=== PATIENT | male | born 1985 | race American Indian/Alaskan Native ===

== ENCOUNTER 2019-08-09 22:33 | Emergency (ER) | payer MEDICAID ==
[2019-08-09] MEDS ORDERED: SODIUM CHLORIDE 0.9% 1000 ML IV SOLN IV ONE (22:51)
[2019-08-09] MEDS ORDERED: DICYCLOMINE 20 MG/2 ML INJ IM ONE (22:53)
[2019-08-09] MEDS ORDERED: ONDANSETRON 4 MG/2 ML INJ IV ONE (22:53)
[2019-08-09] MEDS ORDERED: FAMOTIDINE 20 MG/2 ML INJ IV ONE (22:53)
[2019-08-09] MEDS ORDERED: MORPHINE 4 MG/1 ML INJ IV ONE (22:53)
[2019-08-09] MEDS ORDERED: CEFEPIME/NS 2 GM/100 ML 2 GM/100 ML BAG IV ONE (23:00)
[2019-08-09] MEDS ORDERED: metroNIDAZOLE/NS 500 MG/100 ML 500 MG/100 ML BAG IV SCH (23:00)
--- NOTE | 2019-08-09 23:28 | XRay Report ---
CHEST 1 VIEW 08/09/2019 10:18 PM INDICATION / CLINICAL INFORMATION: cough. COMPARISON: None available. FINDINGS: SUPPORT DEVICES: None. HEART / MEDIASTINUM: No significant abnormality. LUNGS / PLEURA: Slight elevation of the left hemidiaphragm. No acute airspace disease. No pneumothora x. ADDITIONAL FINDINGS: No significant additional findings. IMPRESSION: 1. No acute findings. Signer Name: Rebel Perez MD Signed: 08/09/2019 11:24 PM Workstation Name: [id number]
[2019-08-09 23:43] LABS: Basophils % (Auto) 0.7 % (0.0-1.8); Eosinophils # (Auto) 0.1 K/mm3 (0.0-0.4); Eosinophils % (Auto) 1.2 % (0.0-4.3); Hematocrit 33.3 % (35.5-45.6); Hemoglobin 11.2 gm/dl (11.8-15.2); Lymphocytes # (Auto) 2.1 K/mm3 (1.2-5.4); Mean Corpuscular HGB Conc 34 % (32-34); Mean Corpuscular Volume 95 fl (84-94); Monocytes # (Auto) 0.4 K/mm3 (0.0-0.8); Monocytes % (Auto) 6.1 % (0.0-7.3); Platelet Count 224 K/mm3 (140-440); Red Blood Count 3.49 M/mm3 (3.65-5.03); Red Cell Distribution Width 13.2 % (13.2-15.2)
[2019-08-10 00:07] LABS: Albumin 4.3 g/dL (3.9-5); Calcium 9.6 mg/dL (8.4-10.2)
[2019-08-10] MEDS ORDERED: MORPHINE 4 MG/1 ML INJ IV ONE (00:30)
--- NOTE | 2019-08-10 00:38 | Cat Scan Report ---
CT ABDOMEN AND PELVIS WITHOUT CONTRAST INDICATION / CLINICAL INFORMATION: Pt complains of severe abdominal pain with diarrhea x 3 days. TECHNIQUE: Axial CT images were obtained through the abdomen and pelvis without IV contrast. All CT scans at [facility] location are performed using CT dose reduction for ALARA by means of automated exposure control. COMPARISON: None available. FINDINGS: LOWER CHEST: No significant abnormality. LIVER: No significant abnormality. GALLBLADDER: No significant abnormality. BILE DUCTS: No significant abnormality. PANCREAS: No significant abnormality. SPLEEN: No significant abnormality. ADRENALS: No significant abnormality. RIGHT KIDNEY and URETER: Right nephrostomy drainage catheter in expected position. Multiple tiny nono bstructing stones. LEFT KIDNEY and URETER: Left nephrostomy drainage catheter in expected position. STOMACH and SMALL BOWEL: Fluid-filled, nondilated loops of mid small bowel. COLON: Mildly dilated, fluid-filled loops of colon. Anastomotic suture line in the right colon. APPENDIX: Not visualized. PERITONEUM: No free fluid. No free air. No fluid collection. LYMPH NODES: No significant adenopathy. AORTA and ARTERIES: No significant abnormality. IVC and VEINS: No significant abnormality. URINARY BLADDER: No significant abnormality. REPRODUCTIVE ORGANS: No significant abnormality. ADDITIONAL FINDINGS: Mild perirectal and a sacral soft tissue thickening which appears chronic. Moder ate scrotal edema. SKELETAL SYSTEM: Subjective osteopenia with moderate bilateral hip degenerative arthrosis greater jillian n expected for age. IMPRESSION: 1. No inflammatory process or bowel obstruction. 2. Fluid-filled loops of small bowel and colon may represent enteritis. 3. Moderate scrotal edema. Signer Name: Rebel Perez MD Signed: 08/10/2019 12:33 AM Workstation Name: [id number]
--- NOTE | 2019-08-10 00:58 | Emergency Department Report ---
ED Abdominal Pain HPI - General Chief Complaint: Nausea/Vomiting/Diarrhea Stated Complaint: DIARRHEA Time Seen by Provider: 08/09/19 22:46 Source: patient, EMS Mode of arrival: Stretcher Limitations: No Limitations - History of Present Illness Initial Comments: Patient is a 34-year-old F [place] male with a past medical history of chronic pain as well as in the pruritus requiring bilateral nephrostomy tubes as well as a history of C. difficile who is complaining of 2 days of diarrhea. Patient states the diarrhea is constant. Paramedics states he found the patient in the shower having active watery stools. Patient states over the last 2 days he has vomited 3 times but does not complain of any current nausea. He denies fevers or chills but states he has a mild nonproductive cough. Patient states that he has crampy diffuse abdominal pain is a 10 out of 10 in severity. Severity scale (0 -10): 10 Quality: cramping Consistency: constant Improves With: nothing Worsens With: nothing - Related Data Previous Rx's Medication Instructions Recorded Last Taken Type Dicyclomine [Bentyl] 20 mg PO QID #20 tablet 08/10/19 Unknown Rx Diphenoxylate/Atropine [Lomotil] 1 tab PO Q4H PRN #10 tablet 08/10/19 Unknown Rx Ondansetron [Zofran Odt] 4 mg PO Q8HR #10 tab.rapdis 08/10/19 Unknown Rx Vancomycin HCl 125 mg PO Q6HR 14 Days capsule 08/10/19 Unknown Rx Allergies Allergy/AdvReac Type Severity Reaction Status Date / Time NSAIDS (Non-Steroidal Allergy Anaphylaxis Verified 08/09/19 23:24 Anti-Inflamma ED Review of Systems ROS: Stated complaint: DIARRHEA Other details as noted in HPI Comment: All other systems reviewed and negative ED Past Medical Hx - Social History Smoking Status: Current Every Day Smoker Substance Use Type: None - Medications Home Medications: Home Medications Medication Instructions Recorded Confirmed Last Taken Type Dicyclomine [Bentyl] 20 mg PO QID #20 tablet 08/10/19 Unknown Rx Diphenoxylate/Atropine [Lomotil] 1 tab PO Q4H PRN #10 tablet 08/10/19 Unknown Rx Ondansetron [Zofran Odt] 4 mg PO Q8HR #10 tab.rapdis 08/10/19 Unknown Rx Vancomycin HCl 125 mg PO Q6HR 14 Days capsule 08/10/19 Unknown Rx ED Physical Exam - General Limitations: No Limitations General appearance: alert, in distress (secondary to pIN) - Head Head exam: Present: atraumatic, normocephalic - Eye Eye exam: Present: normal appearance, PERRL, EOMI - ENT ENT exam: Present: normal orophraynx, mucous membranes moist - Neck Neck exam: Present: normal inspection - Respiratory Respiratory exam: Present: normal lung sounds bilaterally. Absent: respiratory distress, wheezes, rales, rhonchi - Cardiovascular Cardiovascular Exam: Present: regular rate, normal rhythm, normal heart sounds. Absent: systolic murmur, diastolic murmur, rubs, gallop - GI/Abdominal GI/Abdominal exam: Present: soft, distended, tenderness, hyperactive bowel jose nds, other (Bilateral nephrostomy tubes are in place). Absent: guarding, rebound, rigid - Rectal Rectal exam: Present: deferred - Extremities Exam Extremities exam: Present: normal inspection - Back Exam Back exam: Present: normal inspection - Neurological Exam Neurological exam: Present: alert, oriented X3 - Psychiatric Psychiatric exam: Present: normal affect, normal mood - Skin Skin exam: Present: warm, dry, intact, normal color. Absent: rash ED Course Vital Signs 08/09/19 08/09/19 08/09/19 22:53 23:00 23:03 Temperature 98.1 F Pulse Rate 76 Respiratory 18 Rate Blood Pressure 111/69 119/69 O2 Sat by Pulse 94 98 98 Oximetry 08/09/19 08/09/19 08/09/19 23:15 23:30 23:45 Temperature Pulse Rate Respiratory Rate Blood Pressure 113/73 113/73 111/79 O2 Sat by Pulse 97 96 96 Oximetry 08/10/19 00:00 Temperature Pulse Rate Respiratory Rate Blood Pressure 111/81 O2 Sat by Pulse 96 Oximetry ED Medical Decision Making - Lab Data Result diagrams: 08/09/19 23:14 08/09/19 23:14 Lab Results 08/09/19 08/09/19 08/09/19 Range/Units 23:14 23:14 23:14 WBC 7.2 (4.5-11.0) K/mm3 RBC 3.49 L (3.65-5.03) M/mm3 Hgb 11.2 L (11.8-15.2) gm/dl Hct 33.3 L (35.5-45.6) % MCV 95 H (84-94) fl MCH 32 (28-32) pg MCHC 34 (32-34) % RDW 13.2 (13.2-15.2) % Plt Count 224 (140-440) K/mm3 Lymph % (Auto) 29.0 (13.4-35.0) % [place] % (Auto) 6.1 (0.0-7.3) % Eos % (Auto) 1.2 (0.0-4.3) % Baso % (Auto) 0.7 (0.0-1.8) % Lymph # 2.1 (1.2-5.4) K/mm3 [place] # 0.4 (0.0-0.8) K/mm3 Eos # 0.1 (0.0-0.4) K/mm3 Baso # 0.0 (0.0-0.1) K/mm3 Seg Neutrophils % 63.0 (40.0-70.0) % Seg Neutrophils # 4.6 (1.8-7.7) K/mm3 Sodium 141 (137-145) mmol/L Potassium 3.7 (3.6-5.0) mmol/L Chloride 103.6 (98-107) mmol/L Carbon Dioxide 23 (22-30) mmol/L Anion Gap 18 mmol/L BUN 24 H (9-20) mg/dL Creatinine 1.8 H (0.8-1.5) mg/dL Estimated GFR 52 ml/min BUN/Creatinine Ratio 13 % Glucose 94 (75-100) mg/dL Lactic Acid 0.90 (0.7-2.0) mmol/L Calcium 9.6 (8.4-10.2) mg/dL Total Bilirubin 0.30 (0.1-1.2) mg/dL AST 17 (5-40) units/L ALT 16 (7-56) units/L Alkaline Phosphatase 164 H (35-129) units/L Total Protein 7.3 (6.3-8.2) g/dL Albumin 4.3 (3.9-5) g/dL Albumin/Globulin Ratio 1.4 % - Radiology Data [facility] [address] [place] [address] Cat Scan Report Signed Patient: JAVIER ARELLANO MR#: [id number] : 1985 Acct:[id number] Age/Sex: 34 / M ADM Date: 08/09/19 Loc: ED Attending Dr: Ordering Physician: ALFIE PRIEST MD Date of Service: 08/09/19 Procedure(s): CT abdomen pelvis wo con Accession Number(s): [id number] cc: ALFIE PRIEST MD CT ABDOMEN AND PELVIS WITHOUT CONTRAST INDICATION / CLINICAL INFORMATION: Pt complains of severe abdominal pain with diarrhea x 3 days. TECHNIQUE: Axial CT images were obtained through the abdomen and pelvis without IV contrast. All CT scans at this location are performed using CT dose reduction for ALARA by means of automated exposure control. COMPARISON: None available. FINDINGS: LOWER CHEST: No significant abnormality. LIVER: No significant abnormality. GALLBLADDER: No significant abnormality. BILE DUCTS: No significant abnormality. PANCREAS: No significant abnormality. SPLEEN: No significant abnormality. ADRENALS: No significant abnormality. RIGHT KIDNEY and URETER: Right nephrostomy drainage catheter in expected position. Multiple tiny nonobstructing stones. LEFT KIDNEY and URETER: Left nephrostomy drainage catheter in expected position. STOMACH and SMALL BOWEL: Fluid-filled, nondilated loops of mid small bowel. COLON: Mildly dilated, fluid-filled loops of colon. Anastomotic suture line in the right colon. APPENDIX: Not visualized. PERITONEUM: No free fluid. No free air. No fluid collection. LYMPH NODES: No significant adenopathy. AORTA and ARTERIES: No significant abnormality. IVC and VEINS: No significant abnormality. URINARY BLADDER: No significant abnormality. REPRODUCTIVE ORGANS: No significant abnormality. ADDITIONAL FINDINGS: Mild perirectal and a sacral soft tissue thickening which appears chronic. Moderate scrotal edema. SKELETAL SYSTEM: Subjective osteopenia with moderate bilateral hip degenerative arthrosis greater than expected for age. IMPRESSION: 1. No inflammatory process or bowel obstruction. 2. Fluid-filled loops of small bowel and colon may represent enteritis. 3. Moderate scrotal edema. Signer Name: Rebel Perez MD Signed: 08/10/2019 12:33 AM Workstation Name: [email or web address] - Medical Decision Making Patient is a 34-year-old F [place] male who is presenting with diarrhea. CT shows probable enteritis type pattern but there is no bowel thickening consistent with colitis. Patient could possibly have C. difficile however his white count was within normal limits and the patient vital signs are stable and there is no CT changes consistent with serious disease. Patient appeared to be in quite a bit of pain on arrival however after morphine was infused approximately 30 seconds later patient states he was having symptom relief. Patient does have chronic pain and could be having some malingering as well. Patient was hydrated and will be discharged home with oral vancomycin as well as Bentyl Zofran. Patient has a GI doctor whom he can follow-up with. Patient return if symptoms worsen. Critical care attestation.: If time is entered above; I have spent that time in minutes in the direct care of this critically ill patient, excluding procedure time. ED Disposition Clinical Impression: Enteritis, C. 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
[2019-08-10 01:48] LABS: Bilirubin,Urine NEG (Negative); Blood,Urine NEG (Negative); Color,Urine Yellow (Yellow); Urobilinogen,Urine < 2.0 mg/dL (<2.0)
[2019-08-10 02:06] LABS: Protein,Urine >500 mg/dL (Negative)
[2019-08-10 03:12] VITALS: BP 128/44
== END 2019-08-10 03:28 | disposition home or self-care (01) ==
LOC: ED 22:33
DX: A04.72 Enterocolitis due to Clostridium difficile, not specified as recurrent (principal); R19.7 Diarrhea, unspecified; R05 Cough; F17.200 Nicotine dependence, unspecified, uncomplicated; Z88.6 Allergy status to analgesic agent
CPT/HCPCS: 36415; 71045; 74176; 80053; 81001; 82140; 85025; 87040; 96365; 96367; 96372; 96375; 96376; 99285; J0500; J0692; J2270; J2405; J7030

== ENCOUNTER 2019-08-15 06:27 | Emergency (ER) | payer MEDICAID ==
[2019-08-15] MEDS ORDERED: SODIUM CHLORIDE 0.9% 1000 ML 1,000 ML IV ONE (07:19)
[2019-08-15] MEDS ORDERED: ONDANSETRON 4 MG/2 ML INJ IV ONE (07:19)
[2019-08-15] MEDS ORDERED: MORPHINE 4 MG/1 ML INJ IV ONE (07:20)
--- NOTE | 2019-08-15 07:23 | Emergency Department Report ---
ED General Adult HPI - General Chief complaint: Nausea/Vomiting/Diarrhea Stated complaint: ABDOMINAL PAIN/DIARRHEA Time Seen by Provider: 08/15/19 07:18 Source: patient, EMS Mode of arrival: Stretcher Limitations: No Limitations - History of Present Illness Initial comments: This is a 34-year-old male with past medical history of chronic pain and prurit us requiring bilateral nephrostomy tubes C. difficile colitis who presents with diarrhea and 1 week of abdominal pain. He has generalized malaise and diffuse abdominal pain. He was seen by my colleague [address] abdomen pelvis: Show chronic or acute pruritus. He was discharged home with oral vancomycin as well as Bentyl and Zofran. He was also referred to GI doctor. -: Gradual, days(s) Consistency: constant Improves with: none Worsens with: none Associated Symptoms: denies other symptoms - Related Data Previous Rx's Medication Instructions Recorded Last Taken Type Dicyclomine [Bentyl] 20 mg PO QID #20 tablet 08/10/19 Unknown Rx Diphenoxylate/Atropine [Lomotil] 1 tab PO Q4H PRN #10 tablet 08/10/19 Unknown Rx Ondansetron [Zofran Odt] 4 mg PO Q8HR #10 tab.rapdis 08/10/19 Unknown Rx Vancomycin HCl 125 mg PO Q6HR 14 Days capsule 08/10/19 Unknown Rx Allergies Allergy/AdvReac Type Severity Reaction Status Date / Time NSAIDS (Non-Steroidal Allergy Anaphylaxis Verified 08/09/19 23:24 Anti-Inflamma ED Review of Systems ROS: Stated complaint: ABDOMINAL PAIN/DIARRHEA Other details as noted in HPI Comment: All other systems reviewed and negative Constitutional: malaise Respiratory: denies: cough Cardiovascular: denies: chest pain Gastrointestinal: abdominal pain, diarrhea ED Past Medical Hx - Past Medical History Previous Medical History?: Yes Additional medical history: chronic diarrhea - Social History Smoking Status: Current Every Day Smoker Substance Use Type: None - Medications Home Medications: Home Medications Medication Instructions Recorded Confirmed Last Taken Type Dicyclomine [Bentyl] 20 mg PO QID #20 tablet 08/10/19 Unknown Rx Diphenoxylate/Atropine [Lomotil] 1 tab PO Q4H PRN #10 tablet 08/10/19 Unknown Rx Ondansetron [Zofran Odt] 4 mg PO Q8HR #10 tab.rapdis 08/10/19 Unknown Rx Vancomycin HCl 125 mg PO Q6HR 14 Days capsule 08/10/19 Unknown Rx ED Physical Exam - General Limitations: No Limitations General appearance: alert, in no apparent distress - Head Head exam: Present: atraumatic, normocephalic - Eye Eye exam: Present: normal appearance - ENT ENT exam: Present: mucous membranes moist - Neck Neck exam: Present: normal inspection, full ROM - Respiratory Respiratory exam: Present: normal lung sounds bilaterally. Absent: respiratory distress, wheezes, rales, rhonchi - Cardiovascular Cardiovascular Exam: Present: regular rate, normal rhythm, normal heart sounds. Absent: systolic murmur, diastolic murmur, rubs, gallop - GI/Abdominal GI/Abdominal exam: Present: soft, normal bowel sounds. Absent: distended, tenderness, guarding, rebound - Rectal Rectal exam: Present: deferred - Extremities Exam Extremities exam: Present: normal inspection - Back Exam Back exam: Present: normal inspection - Neurological Exam Neurological exam: Present: alert, oriented X3 - Psychiatric Psychiatric exam: Present: normal affect, normal mood - Skin Skin exam: Present: warm, dry, intact, normal color. Absent: rash ED Course Vital Signs 08/15/19 08/15/19 08/15/19 07:05 07:08 07:30 Temperature 97.6 F Pulse Rate 500 H 54 L Respiratory 16 17 Rate Blood Pressure 100/67 100/67 102/68 O2 Sat by Pulse 96 96 Oximetry 08/15/19 08/15/19 08/15/19 07:53 08:00 08:30 Temperature Pulse Rate 53 L 54 L Respiratory 18 9 L 10 L Rate Blood Pressure 109/69 106/70 O2 Sat by Pulse 96 100 Oximetry 08/15/19 08/15/19 09:00 09:30 Temperature Pulse Rate 47 L 48 L Respiratory 13 14 Rate Blood Pressure 106/64 110/67 O2 Sat by Pulse 98 97 Oximetry ED Medical Decision Making - Lab Data Result diagrams: 08/15/19 07:30 08/15/19 07:30 Laboratory Results - last 24 hr 08/15/19 08/15/19 07:30 07:30 WBC 8.0 RBC 3.44 L Hgb 11.2 L Hct 32.4 L MCV 95 H MCH 33 H MCHC 35 H RDW 13.4 Plt Count 206 Lymph % (Auto) 25.3 [place] % (Auto) 5.5 Eos % (Auto) 1.6 Baso % (Auto) 1.0 Lymph # 2.0 [place] # 0.4 Eos # 0.1 Baso # 0.1 Seg Neutrophils % 66.6 Seg Neutrophils # 5.3 Sodium 137 Potassium 3.9 Chloride 105.4 Carbon Dioxide 20 L Anion Gap 16 BUN 20 Creatinine 1.5 Estimated GFR > 60 BUN/Creatinine Ratio 13 Glucose 78 Calcium 8.8 Total Bilirubin 0.40 AST 15 ALT 15 Alkaline Phosphatase 152 H Total Protein 7.2 Albumin 3.8 L Albumin/Globulin Ratio 1.1 - Medical Decision Making Mr. Yates presents with 6 days of diarrhea diffuse abdominal pain differential diagnosis includes IBS, inflammatory bowel disease, C. difficile colitis. My colleague treated Mr. Yates appropriately. earline' dhome Critical care attestation.: If time is entered above; I have spent that time in minutes in the direct care of this critically ill patient, excluding procedure time. ED Disposition Clinical Impression: Enteritis, C. difficile diarrhea Disposition: TO HOME OR SELFCARE Is pt being admited?: No Does the pt Need Aspirin: No Condition: Stable Referrals: CHADWICK GRACIA MD [Primary Care Provider] - 3-5 Days
[2019-08-15 07:43] LABS: Basophils # (Auto) 0.1 K/mm3 (0.0-0.1); Eosinophils # (Auto) 0.1 K/mm3 (0.0-0.4); Eosinophils % (Auto) 1.6 % (0.0-4.3); Hematocrit 32.4 % (35.5-45.6); Hemoglobin 11.2 gm/dl (11.8-15.2); Lymphocytes % (Auto) 25.3 % (13.4-35.0); Mean Corpuscular HGB Conc 35 % (32-34); Mean Corpuscular Volume 95 fl (84-94); Monocytes # (Auto) 0.4 K/mm3 (0.0-0.8); Monocytes % (Auto) 5.5 % (0.0-7.3); Platelet Count 206 K/mm3 (140-440); Red Blood Count 3.44 M/mm3 (3.65-5.03); Red Cell Distribution Width 13.4 % (13.2-15.2)
[2019-08-15] MEDS: levoFLOXacin 500 MG TAB PO ONE ×2 (07:52→08:08)
[2019-08-15 08:07] LABS: Alanine Aminotransferase 15 units/L (7-56); Albumin 3.8 g/dL (3.9-5); BUN/Creatinine Ratio 13; Blood Urea Nitrogen 20 mg/dL (9-20); Calcium 8.8 mg/dL (8.4-10.2); Hemolysis Index 3
[2019-08-15 09:33] VITALS: BP 110/67
[2019-08-15] MEDS ORDERED: oxyCODONE /ACETAMINOPHEN 5-325MG TAB PO ONE (09:50)
== END 2019-08-15 12:51 | disposition home or self-care (01) ==
LOC: ED 06:27
DX: A04.72 Enterocolitis due to Clostridium difficile, not specified as recurrent (principal); F17.200 Nicotine dependence, unspecified, uncomplicated
CPT/HCPCS: 36415; 80053; 85025; 96361; 96374; 96375; 99284; J2270; J2405; J7030